=== PATIENT | male | born 1945 | race Caucasian/White ===

== ENCOUNTER → 2017-11-03 | Day surgery (SDC) | payer MEDICARE, OTHER ==
[~2017-11-03] MED LIST: Lactated Ringers 1,000 ML IV SCH; Propofol 200 MG/20 ML SDV IV ONE
[2017-11-03 12:27] VITALS: BP 138/60
--- NOTE | 2017-11-03 13:45 | OR ---
DATE OF OPERATION: 11/03/2017 PREOPERATIVE DIAGNOSIS: CRICOPHARYNGEAL DYSPHAGIA. POSTOPERATIVE DIAGNOSIS: CRICOPHARYNGEAL DYSPHAGIA. SURGEON: Glen Johnston MD PROCEDURE: EGD WITH ESOPHAGEAL CULTURE. ANESTHESIA: MEDIA RELATIONS DIRECTOR due to chronic alcohol abuse. COMPLICATIONS: None. SPECIMEN: Culture of esophagus. FINDINGS: 1. Full-length EGD. 2. Status post gastric bypass. 3. Possible [place] esophagitis. 4. No definable etiology of patient's dysphagia. RECOMMENDATIONS: Medical followup with Efren Perez will give him some nystatin until culture reports back. INDICATIONS: The patient was in for routine physical. He admits to having a feeling of his throat closing when he swallows certain foods in the back of his throat and upper esophageal area. He was sent for EGD. DESCRIPTION OF PROCEDURE: The patient was prepped and draped, placed in the left lateral decubitus position. A lubricated Olympus gastroscope was inserted and easily advanced to this cricopharyngeus region. The scope passed easily with patient swallow, no identifiable lesions were seen from that point to the distal esophagus. The Z-line was clear and sharp at around 38 cm. The patient does have some white plaque-like lesions on the esophagus possibly representing [place]. [place] was used to get a culture of that. The scope was advanced into the stomach and the jejunum. The patient has a Guy-en-Y bypass in the past with the jejunal anastomosis. The anastomosis looks fine without any peptic ulcer disease. There are no polyps, masses, ulcerations, or bleeding sites. In the stomach, a prior stapling can be seen in the lumen. Air was suctioned from the stomach and scope was removed without complication. SINDI/DAX /[id number]
== END ==
LOC: CC.SDS 10:47
PROVIDERS: ATTEND Family Medicine
DX: R13.12 Dysphagia, oropharyngeal phase (principal); F10.20 Alcohol dependence, uncomplicated; M10.9 Gout, unspecified; E78.00 Pure hypercholesterolemia, unspecified; I25.2 Old myocardial infarction; E11.9 Type 2 diabetes mellitus without complications; I50.9 Heart failure, unspecified; M17.0 Bilateral primary osteoarthritis of knee; I25.10 Atherosclerotic heart disease of native coronary artery without angina pectoris; E66.01 Morbid (severe) obesity due to excess calories; Z68.36 Body mass index [BMI] 36.0-36.9, adult; Z98.84 Bariatric surgery status; Z88.8 Allergy status to other drugs, medicaments and biological substances; Z88.5 Allergy status to narcotic agent; Z79.899 Other long term (current) drug therapy; Z79.82 Long term (current) use of aspirin; Z90.49 Acquired absence of other specified parts of digestive tract; Z95.5 Presence of coronary angioplasty implant and graft; Z98.52 Vasectomy status; Z87.891 Personal history of nicotine dependence
CPT/HCPCS: 43235; J2704; J7120; 00740

== ENCOUNTER 2018-06-05 10:13 | Observation (INO) | payer MEDICARE, OTHER ==
[2018-06-05] MEDS ORDERED: LORazepam 2 MG/ML Syringe IVPUSH PRN (11:25)
[2018-06-05] MEDS ORDERED: Acetaminophen 325 MG Tab PO PRN (11:25)
[2018-06-05] MEDS ORDERED: Sodium Chloride 0.9% 10 ML Syringe FLUSH PRN (11:25)
[2018-06-05 12:02] LABS: CHLORIDE,CL 77 mEq/L (98-106)
[2018-06-05 12:22] LABS: SODIUM,NA 118 mEq/L (136-145)
[2018-06-05] MEDS ORDERED: MVI, Adult with Vitamin K 10 ML, Folic Acid 1 MG, Thiamine 100 MG, Magnesium Sulfate 2 ... IV ONE ×5 (12:30)
[2018-06-05] MEDS ORDERED: Enoxaparin 40 MG/0.4 ML Syringe SUBCUT SCH (13:00)
[2018-06-05] MEDS ORDERED: Magnesium Sulfate/D5W 2 GM in Premix Bag 1 BAG IV ONE (16:16)
[2018-06-05] MEDS ORDERED: Sodium Chloride 0.9% 1,000 ML IV SCH (16:30)
[2018-06-05] MEDS: Calcium Carbonate 500 MG Tab.Chew PO SCH (19:32)
[2018-06-05] MEDS ORDERED: Thiamine 100 MG Tab PO SCH (20:00)
[2018-06-06] MEDS ORDERED: Pantoprazole 40 MG Tab.CR PO SCH (07:00)
[2018-06-06] MEDS ORDERED: Levothyroxine 100 MCG Tab PO SCH (07:00)
[2018-06-06 07:35] VITALS: BP 140/51
[2018-06-06 07:39] LABS: CHLORIDE,CL 82 mEq/L (98-106)
[2018-06-06 07:46] LABS: SODIUM,NA 119 mEq/L (136-145)
[2018-06-06] MEDS ORDERED: Cyanocobalamin (Vitamin B12) 1,000 MCG Tab PO SCH (08:00)
[2018-06-06] MEDS ORDERED: PARoxetine 20 MG Tab PO SCH (08:00)
[2018-06-06] MEDS ORDERED: Aspirin 81 MG Tab.EC PO SCH (08:00)
[2018-06-06] MEDS ORDERED: PAROXETINE 30 MG TAB PO SCH (08:00)
[2018-06-06] MEDS ORDERED: Furosemide 40 MG Tab PO SCH (08:00)
[2018-06-06] MEDS ORDERED: amLODIPine 2.5 MG Tab PO SCH (08:00)
[2018-06-06] MEDS ORDERED: Potassium Chloride 40 MEQ in Premix Bag 1 BAG IV ONE (08:10)
[2018-06-06] MEDS ORDERED: PAROXETINE 20 MG TAB PO SCH (08:33)
[2018-06-06] MEDS ORDERED: FUROSEMIDE 40 MG TAB PO SCH (08:39)
[2018-06-06] MEDS ORDERED: LEVOTHYROXINE 100 MCG TAB PO SCH (08:40)
[2018-06-06] MEDS ORDERED: VITAMIN B PO SCH (08:41)
[2018-06-06] MEDS ORDERED: ASPIRIN 81 MG TAB PO SCH (08:42)
[2018-06-06] MEDS ORDERED: MAGNESIUM OXIDE 500 MG PO SCH (08:43)
[2018-06-06] MEDS ORDERED: Potassium Chloride 10 MEQ Tab.ER PO ONE (09:46)
[2018-06-06] MEDS: Calcium Carbonate 500 MG Tab.Chew PO SCH (09:51)
--- NOTE | 2018-06-06 15:16 | PCM.DCSUM1 ---
Discharge Summary - Hospital Course Free Text/Narrative:: Patient presented to clinic to see Efren Perez with concerns of weakness and falls. Patient had been experiencing increased edema in his legs. Did see Efren Perez last week and was started on Metolazone. Admitted that it did help his edema but possibly increased his weakness. He hasn't been able to walk well , falls more often, twice the morning of admit. Does drink on a daily basis compounding the issue. had states was more confused as well. He has established care recently with Dr. Farrell in [place] due to chronic, increasing medical concerns. 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 Was due to see Dr. Farrell today for follow up to discuss MRIs that he has had done of his back and brain. Admitted and labs ordered. Sodium was found to 118 on admit, potassium 3.3. Creatinine 1.0. ProBNP normal. Started on IV Normal saline with repeat labs - Discharge Data Discharge Date: 06/06/18 Discharge Disposition: DC/Tfer to Acute Hospital 02 Condition: Good - Patient Summary/Data Complications: none Consults: Consultations 06/05/18 11:25 PT Evaluation and Treatment [CONS] Routine Hospital Course: Patient is alert and oriented today. He states he feels better than yesterday. Eating well. Blood pressure has been stable. Was given a banana bag yesterday, no DTs yet noted. He had follow up labs done today, sodium with minimal improvement, today at 119, potassium dropped to 2.4. Given potassium 40 meq bump this am. He is up to the bathroom with 1 assist and the walker. Family in today and requesting that he be transferred to [facility] as they are hoping to medically stabilize him and be able to place him somewhere for alcohol treatment. Daughter concerned that if they "miss the window of opportunity and he goes home again, won't get him to agree to get help." They relate that they have spoken with Dr. Farrell in [place] about this and that at the appointment today, she would arrange to have this accomplished. Contact [facility] in [place] and spoke with ZOHAIB Hayden who works with Dr. Farrell as she was not in clinic. She did review his clinic notes and called Dr. Farrell. It was their understanding that he does need treatment, that he could be hospitalized to help with DTs and have case management social worker arrange this. I again spoke with Janice and relayed this information. As he is not yet medically stable, needs to get his electrolytes in balance before any treatment facility would accept him. They would like this done in [place] as that is where his children live and they have a better support system. I contacted Dr. Azul and relayed all this information as well as the patient status. They did accept the patient and will have case management social worker consult. is aware that type of treatment is dependent on the treatment facility as well as payment, coverage, etc. Risks and benefits of transfer discussed with patient and . Benefits of transfer include more specialized care as he does have multiple co-morbidities. Risks of transfer include worsening status, vehicular crash or . Benefits of non-transfer include care close to home. Risks of non-transfer at this point very minimal as we could adjust his electrolyte balance here, however , would not have adequate services for his DTs. Family agrees to transfer this patient. - Patient Instructions Other/Special Instructions: Transfer ALS to Dr. Azul - Discharge Plan *PRESCRIPTION DRUG MONITORING PROGRAM REVIEWED*: Not Applicable *COPY OF PRESCRIPTION DRUG MONITORING REPORT IN PATIENT PUSHPA: Not Applicable Home Medications: Home Meds Levothyroxine [Synthroid] 100 mcg PO DAILY 07/22/14 [History] PARoxetine [Paxil] 50 mg PO DAILY 07/22/14 [History] Cyanocobalamin (Vitamin B12) [Vitamin B12] 1,000 mcg PO DAILY 08/07/15 [History] Magnesium 500 mg PO DAILY 08/07/15 [History] Multivitamin [Daily Multiple Vitamin] 1 tab PO DAILY 08/07/15 [History] Calcium Carbonate [Calcium] 500 mg PO BID 10/29/15 [History] Ibuprofen 600 mg PO Q8H PRN 10/29/15 [History] Aspirin [Halfprin] 81 mg PO DAILY 02/15/16 [History] Acetaminophen 325 mg PO Q6H PRN 10/26/17 [History] Cholecalciferol (Vitamin D3) [Vitamin D3] 3,000 units PO DAILY 10/26/17 [History ] Furosemide [Lasix] 80 mg PO DAILY 10/26/17 [History] amLODIPine [Norvasc] 5 mg PO DAILY 10/26/17 [History] Omeprazole 40 mg PO BIDAC 06/05/18 [History] Thiamine [Vitamin B-1] 100 mg PO DAILY 06/05/18 [History] metOLazone [Zaroxolyn] 5 mg PO DAILY 06/05/18 [History] - General Info Date of Service: 06/06/18 Admission Dx/Problem (Free Text: Hyponatremia Weakness Chronic Alcoholism Functional Status: Reports: Pain Controlled, Tolerating Diet, Ambulating - Review of Systems General: Reports: Weakness, Fatigue. Denies: Fever HEENT: Denies: Ear Pain, Sinus Congestion, Sore Throat Pulmonary: Reports: Shortness of Breath, Wheezing. Denies: Cough Cardiovascular: Reports: Edema. Denies: Chest Pain, Lightheadedness Gastrointestinal: Denies: Abdominal Pain, Nausea, Vomiting Genitourinary: Reports: No Symptoms Musculoskeletal: Reports: Back Pain Skin: Reports: No Symptoms Neurological: Reports: Pre-Existing Deficit - Patient Data Vitals - Most Recent: Last Vital Signs Temp 97.9 F 06/06/18 07:34 Pulse 67 06/06/18 07:34 Resp 18 06/06/18 07:34 BP 140/51 L 06/06/18 07:34 Pulse Ox 95 06/06/18 07:34 Weight - Most Recent: 236 lb 6.4 oz Lab Results - Last 24 hrs: Laboratory Results - last 24 hr 06/05/18 06/06/18 Range/Units 15:55 07:26 Sodium 119 L* (136-145) mEq/L Potassium 2.4 L* D (3.5-5.0) mEq/L Chloride 82 L (98-106) mEq/L Carbon Dioxide 35 H (21-32) mmol/L BUN 11 (7-18) mg/dL Creatinine 0.9 (0.7-1.3) mg/dL Est Cr Clr Drug Dosing 68.61 mL/min Estimated GFR (MDRD) > 60 (>=60) mL/min Glucose 111 H (75-99) mg/dL Calcium 7.6 L (8.4-10.1) mg/dL Magnesium 2.0 (1.8-2.4) mg/dL Urine Color Yellow (YELLOW) Urine Appearance Clear (CLEAR) Urine pH 6.5 (4.5-8.0) Ur Specific [place] 1.015 (1.003-1.020) Urine Protein 100 H (NEGATIVE) mg/dL Urine Glucose (UA) Negative (NEGATIVE) mg/dL Urine Ketones 15 H (NEGATIVE) mg/dL Urine Occult Blood Negative (NEGATIVE) Urine Nitrite Negative (NEGATIVE) Urine Bilirubin Negative (NEGATIVE) Urine Urobilinogen 0.2 (0.2-1.0) EU/dL Ur Leukocyte Esterase Negative (NEGATIVE) Urine RBC 0-5 (0-5) /HPF Urine WBC 0-5 (0-5) /HPF Ur Squamous Epith Cells Occasional H (NOT SEEN) /HPF Urine Bacteria Few H (NOT SEEN) /HPF Med Orders - Current: Current Medications Discontinued Medications Acetaminophen (Tylenol) 650 mg PO Q4H PRN PRN Reason: Pain (Mild 1-3)/fever Amlodipine Besylate (Norvasc) 5 mg PO DAILY [facility] Aspirin (Halfprin) 81 mg PO DAILY [facility] Calcium Carbonate/Glycine (Tums) 500 mg PO BID [facility] Last Admin: 06/06/18 09:51 Dose: 500 mg Cyanocobalamin (Vitamin B12) 1,000 mcg PO DAILY [facility] Enoxaparin Sodium (Lovenox) 40 mg SUBCUT DAILY@1200 [facility] Last Admin: 06/05/18 12:59 Dose: 40 mg Furosemide (Lasix) 80 mg PO DAILY [facility] Multivitamins/Minerals 10 ml/Folic Acid 1 mg/ Thiamine HCl 100 mg/ Magnesium Sulfate 2 gm / Sodium Chloride 1,015.2 mls @ 75 mls/hr IV ONETIME ONE Stop: 06/06/18 02:02 Last Admin: 06/05/18 12:57 Dose: 75 mls/hr Magnesium Sulfate/Dextrose 2 (gm/ Premix) 200 mls @ 100 mls/hr IV ONETIME ONE Stop: 06/05/18 18:15 Last Admin: 06/05/18 17:15 Dose: 100 mls/hr Sodium Chloride (Normal Saline) 1,000 mls @ 100 mls/hr IV ASDIRECTED [facility] Last Admin: 06/06/18 03:57 Dose: 100 mls/hr Potassium Chloride 40 meq/ (Premix) 100 mls @ 25 mls/hr IV ONETIME ONE Stop: 06/06/18 12:09 Last Admin: 06/06/18 08:44 Dose: 25 mls/hr Levothyroxine Sodium (Synthroid) 100 mcg PO ACBREAKFAST [facility] Lorazepam (Ativan) 1 mg IVPUSH Q6H PRN PRN Reason: Nausea/Vomiting Magnesium Oxide (Magnesium Oxide) 500 mg PO DAILY [facility] Paroxetine 20 Mg Tab 1 each PO DAILY [facility] Paroxetine 30 Mg Tab 1 each PO DAILY [facility] Last Admin: 06/06/18 09:45 Dose: 1 each Amlodipine 5 Mg Tab 1 each PO DAILY [facility] Last Admin: 06/06/18 09:42 Dose: 1 each Furosemide 40 Mg Tab 2 each PO DAILY [facility] Last Admin: 06/06/18 09:44 Dose: 2 each Levothyroxine 100 (Mcg Tab) 1 each PO ACBREAKFAST [facility] Last Admin: 06/06/18 09:41 Dose: 1 each Vitamin B 12 Tab 1 each PO DAILY [facility] Aspirin 81 Mg Tab 1 each PO DAILY [facility] Last Admin: 06/06/18 09:43 Dose: 1 each Magnesium Oxide 500 (Mg Tab) 1 each PO DAILY [facility] Pantoprazole Sodium (Protonix) 40 mg PO ACBREAKFAST [facility] Last Admin: 06/06/18 09:51 Dose: 40 mg Paroxetine HCl (Paxil) 50 mg PO DAILY [facility] Potassium Chloride (Klor-Con 10) 20 meq PO ONETIME ONE Stop: 06/06/18 09:47 Last Admin: 06/06/18 10:10 Dose: 20 meq Sodium Chloride (Saline Flush) 10 ml FLUSH ASDIRECTED PRN PRN Reason: Keep Vein Open Thiamine HCl (Vitamin B-1) 100 mg PO BEDTIME [facility] - Exam General: Reports: Alert, Oriented HEENT: Reports: Mucous Membr. Moist/[place] Neck: Reports: Supple Lungs: Reports: Decreased Breath Sounds Cardiovascular: Reports: Regular Rate, Regular Rhythm GI/Abdominal Exam: Normal Bowel Sounds, Soft, Non-Tender Neurological: Reports: No New Focal Deficit
== END 2018-06-06 11:45 ==
LOC: UNDOADMOB 10:22 → CC.MS 10:22
PROVIDERS: ADMIT Physician Assistant Medical; ATTEND Family Medicine
DX: R53.1 Weakness (principal); F10.20 Alcohol dependence, uncomplicated; R29.6 Repeated falls; R60.0 Localized edema; E87.1 Hypo-osmolality and hyponatremia; I11.0 Hypertensive heart disease with heart failure; I50.9 Heart failure, unspecified; E11.9 Type 2 diabetes mellitus without complications; E03.9 Hypothyroidism, unspecified; G47.30 Sleep apnea, unspecified; F32.9 Major depressive disorder, single episode, unspecified; Z87.891 Personal history of nicotine dependence; Z79.82 Long term (current) use of aspirin; Z79.899 Other long term (current) drug therapy; Z88.5 Allergy status to narcotic agent
CPT/HCPCS: 36415; 71046; 80048; 80053; 81001; 83735; 83880; 85025; 96372; 96374; 96375; 97110-GP; 97162-GP; A9270-GY; G0378; J1650; J3411; J3475; J3480; J3490; J7030

== ENCOUNTER 2019-09-21 10:30 | Inpatient (IN) | payer MEDICARE, OTHER ==
[2019-09-21 12:40] LABS: CHLORIDE,CL 100 mEq/L (98-106); SODIUM,NA 138 mEq/L (136-145)
[2019-09-21] MEDS ORDERED: Temazepam 15 MG Cap PO PRN (14:28)
[2019-09-21] MEDS ORDERED: Acetaminophen 325 MG Tab PO PRN (14:28)
[2019-09-21] MEDS ORDERED: Ondansetron 4 MG/2 ML SDV IV PRN (14:28)
[2019-09-21] MEDS ORDERED: Docusate Sodium 100 MG Cap PO PRN (14:28)
[2019-09-21] MEDS ORDERED: Ibuprofen 200 MG Tab PO PRN (14:28)
[2019-09-21] MEDS ORDERED: cefTRIAXone 1 GM Vial IVPUSH SCH (15:30)
[2019-09-21] MEDS ORDERED: methylPREDNISolone Sodium Succinate 125 MG/2 ML SDV IVPUSH SCH (16:00)
[2019-09-21] MEDS ORDERED: Azithromycin 500 MG in Sodium Chloride 0.9% 250 ML IV SCH (16:00)
[2019-09-21] MEDS: Albuterol/Ipratropium 3.0-0.5 MG/3 ML Neb Soln NEB SCH ×2 (16:32→19:38)
[2019-09-21] MEDS ORDERED: Enoxaparin 40 MG/0.4 ML Syringe SUBCUT SCH ×2 (18:00→20:00)
[2019-09-21 19:30] VITALS: BP 136/61; PULSE 117
[2019-09-21] MEDS: Albuterol/Ipratropium 3.0-0.5 MG/3 ML Neb Soln NEB PRN ×2 (19:52→19:53)
[2019-09-21] MEDS ORDERED: Furosemide 40 MG/4 ML VIAL IVPUSH ONE (19:53)
[2019-09-21] MEDS ORDERED: Calcium Carbonate 500 MG Tab.Chew PO SCH (20:00)
[2019-09-21 20:09] LABS: O2 DELIVERY DEVICE NON REBR MASK
[2019-09-21 20:11] LABS: BICARBONATE,ARTERIAL 21.4 mm/L (22.0-26.0); O2 SATURATION ARTERIAL 85 % (95-98); PCO2 ARTERIAL 37 mm/Hg0 (35-45); PO2 ARTERIAL 52 mm/Hg (80-100)
--- NOTE | 2019-09-21 20:31 | PCM.PN ---
- General Info Date of Service: 09/21/19 - Review of Systems General: Reports: Other (Respiratory Distress) Pulmonary: Reports: Shortness of Breath Cardiovascular: Reports: No Symptoms Gastrointestinal: Reports: No Symptoms Musculoskeletal: Reports: No Symptoms Skin: Reports: No Symptoms - Patient Data Vitals - Most Recent: Last Vital Signs Temp 98.2 F 09/21/19 19:29 Pulse 117 H 09/21/19 19:29 Resp 24 H 09/21/19 19:29 BP 136/61 09/21/19 19:29 Pulse Ox 85 L 09/21/19 19:29 Weight - Most Recent: 213 lb 12.8 oz I&O - Last 24 Hours: Intake & Output 09/21/19 09/21/19 09/21/19 06:59 14:59 22:59 Intake Total 400 Balance 400 Lab Results Last 24 Hours: Laboratory Results - last 24 hr 09/21/19 09/21/19 09/21/19 Range/Units 10:00 10:00 10:00 WBC 10.3 H (5.0-10.0) 10^3/uL RBC 4.75 (4.50-6.00) 10^6/uL Hgb 13.0 L (14.0-18.0) g/dL Hct 40.9 (40.0-54.0) % MCV 86.1 (82.0-94.0) fL MCH 27.4 (27.0-32.0) pg MCHC 31.8 L (33.0-38.0) g/dL RDW Coeff of Pk 18.7 H (11.0-15.0) % Plt Count 215 (150-400) 10^3/uL Add Manual Diff Yes Neutrophils % (Manual) 68 (35-85) % Band Neutrophils % 25 H (0-5) % Lymphocytes % (Manual) 2 L (21-55) % Monocytes % (Manual) 5 (2-12) % ABG pH (7.35-7.45) ABG pCO2 (35-45) mm/Hg0 ABG pO2 (80-100) mm/Hg ABG HCO3 (22.0-26.0) mm/L ABG O2 Saturation (95-98) % ABG Base Excess (-2.0-3.0) O2 Delivery Device Sodium 138 (136-145) mEq/L Potassium 4.0 (3.5-5.0) mEq/L Chloride 100 (98-106) mEq/L Carbon Dioxide 27 (21-32) mmol/L BUN 19 H (7-18) mg/dL Creatinine 1.1 (0.7-1.3) mg/dL Est Cr Clr Drug Dosing TNP Estimated GFR (MDRD) > 60 (>=60) mL/min Glucose 123 H (75-99) mg/dL Lactic Acid 1.7 (0.4-2.0) mmol/L Calcium 8.8 (8.4-10.1) mg/dL Total Bilirubin 0.6 (0.0-1.0) mg/dL AST 29 (15-37) U/L ALT 36 (12-78) U/L Alkaline Phosphatase 167 H (46-116) U/L C-Reactive Protein 20.0 H (0.2-0.8) mg/dL NT-Pro-B Natriuret Pep 5982 H (0-1000) pg/mL Total Protein 6.8 (6.4-8.2) g/dL Albumin 3.0 L (3.4-5.0) g/dL 09/21/19 Range/Units 20:05 WBC (5.0-10.0) 10^3/uL RBC (4.50-6.00) 10^6/uL Hgb (14.0-18.0) g/dL Hct (40.0-54.0) % MCV (82.0-94.0) fL MCH (27.0-32.0) pg MCHC (33.0-38.0) g/dL RDW Coeff of Pk (11.0-15.0) % Plt Count (150-400) 10^3/uL Add Manual Diff Neutrophils % (Manual) (35-85) % Band Neutrophils % (0-5) % Lymphocytes % (Manual) (21-55) % Monocytes % (Manual) (2-12) % ABG pH 7.37 (7.35-7.45) ABG pCO2 37 (35-45) mm/Hg0 ABG pO2 52 L (80-100) mm/Hg ABG HCO3 21.4 L (22.0-26.0) mm/L ABG O2 Saturation 85 L (95-98) % ABG Base Excess -4.0 L (-2.0-3.0) O2 Delivery Device Non rebr mask Sodium (136-145) mEq/L Potassium (3.5-5.0) mEq/L Chloride (98-106) mEq/L Carbon Dioxide (21-32) mmol/L BUN (7-18) mg/dL Creatinine (0.7-1.3) mg/dL Est Cr Clr Drug Dosing Estimated GFR (MDRD) (>=60) mL/min Glucose (75-99) mg/dL Lactic Acid (0.4-2.0) mmol/L Calcium (8.4-10.1) mg/dL Total Bilirubin (0.0-1.0) mg/dL AST (15-37) U/L ALT (12-78) U/L Alkaline Phosphatase (46-116) U/L C-Reactive Protein (0.2-0.8) mg/dL NT-Pro-B Natriuret Pep (0-1000) pg/mL Total Protein (6.4-8.2) g/dL Albumin (3.4-5.0) g/dL Matthew Results Last 24 Hours: Microbiology 09/21/19 10:00 Influenza Type A Antigen Screen - Final Nasopharyngeal Swab NEGATIVE INFLUENZA A VIRUS AG REFERENCE RANGE: NEGATIVE Influenza Type B Antigen Screen - Final NEGATIVE INFLUENZA B VIRUS AG REFERENCE RANGE: NEGATIVE Med Orders - Current: Current Medications Acetaminophen (Tylenol) 650 mg PO Q4H PRN PRN Reason: Pain (Mild 1-3)/fever Albuterol/Ipratropium (Duoneb 3.0-0.5 Mg/3 Ml) 3 ml NEB Q4H PRN PRN Reason: Shortness Of Breath/wheezing Last Admin: 09/21/19 19:53 Dose: 3 ml Albuterol/Ipratropium (Duoneb 3.0-0.5 Mg/3 Ml) 3 ml NEB QIDRT [facility] Last Admin: 09/21/19 19:38 Dose: 3 ml Amlodipine Besylate (Norvasc) 5 mg PO DAILY [facility] Aspirin (Halfprin) 81 mg PO DAILY [facility] Calcium Carbonate/Glycine (Tums) 1,000 mg PO BID [facility] Last Admin: 09/21/19 19:39 Dose: 1,000 mg Ceftriaxone Sodium (Rocephin) 1 gm IVPUSH Q24H [facility] Last Admin: 09/21/19 16:32 Dose: 1 gm Cholecalciferol (Vitamin D3) 25 mcg PO DAILY [facility] Cyanocobalamin (Vitamin B12) 1,000 mcg PO DAILY [facility] Docusate Sodium (Colace) 100 mg PO BID PRN PRN Reason: Constipation Enoxaparin Sodium (Lovenox) 40 mg SUBCUT Q24H [facility] Last Admin: 09/21/19 19:38 Dose: 40 mg Azithromycin 500 mg/ Sodium (Chloride) 250 mls @ 250 mls/hr IV Q24H [facility] Last Admin: 09/21/19 16:31 Dose: 250 mls/hr Ibuprofen (Motrin) 600 mg PO Q6H PRN PRN Reason: Pain (mild 1-3) Last Admin: 09/21/19 16:36 Dose: 600 mg Levothyroxine Sodium (Levothyroxine) 125 mcg PO ACBRK [facility] Magnesium Oxide (Magnesium Oxide) 500 mg PO DAILY [facility] Methylprednisolone Sodium Succinate (Solu-Medrol) 62.5 mg IVPUSH Q12H [facility] Last Admin: 09/21/19 16:31 Dose: 62.5 mg Multivitamins/Minerals/Vitamin C (Tab-A-Zahra) 1 tab PO DAILY [facility] Ondansetron HCl (Zofran) 4 mg IV Q6H PRN PRN Reason: Nausea/Vomiting Pantoprazole Sodium (Protonix) 40 mg PO DAILY@0700 [facility] Temazepam (Restoril) 15 mg PO BEDTIME PRN PRN Reason: Sleep Discontinued Medications Enoxaparin Sodium (Lovenox) 40 mg SUBCUT Q24H [facility] Last Admin: 09/21/19 19:11 Dose: Not Given Furosemide (Lasix) 40 mg IVPUSH ONETIME ONE Stop: 09/21/19 19:54 Last Admin: 09/21/19 20:08 Dose: 40 mg - Exam Quality Assessment: Supplemental Oxygen (NRB 10L upon assessment) General: Severe Distress (Respiratory Distress: Rate 34, accessory muscle use. ) , Other (Drowsy but arrousable. ) Neck: Trachea Midline, No JVD Lungs: Decreased Breath Sounds (severe throughout), Rhonchi Cardiovascular: Tachycardia Extremities: Normal Inspection, Normal Capillary Refill, Pedal Edema (+1 BLE) Peripheral Pulses: 2+: Radial (L), Radial (R), Popliteal (R), Posterior Tibial ( L), Posterior Tibial (R), Dorsalis Pedis (L), Dorsalis Pedis (R) Skin: Warm, Dry, Intact Neurological: Other (Confused, "190" year. Does know name and [facility].) - Problem List Review Problem List Initiated/Reviewed/Updated: Yes - My Orders Last 24 Hours: My Active Orders 09/21/19 Chest 2V [CR] Routine 09/21/19 10:00 CULTURE BLOOD [BC] Routine 09/21/19 10:15 CULTURE BLOOD [BC] Routine 09/21/19 14:28 Patient Status [ADT] Routine Height and Weight [RC] .PRN Oxygen Therapy [RC] 2355 Up With Assistance [RC] .PRN Up to Chair [RC] .PRN Vital Signs [RC] 0000,0400,0800,1200,1600,2000 Acetaminophen [Tylenol] 650 mg PO Q4H PRN Albuterol/Ipratropium [DuoNeb 3.0-0.5 MG/3 ML] 3 ml NEB Q4H PRN Docusate Sodium [Colace] 100 mg PO BID PRN Ibuprofen [Motrin] 600 mg PO Q6H PRN Ondansetron [Zofran] 4 mg IV Q6H PRN Temazepam [Restoril] 15 mg PO BEDTIME PRN Resuscitation Status Routine 09/21/19 15:03 Intake and Output [RC] 0600,1800 Notify Provider Vital Signs [RC] .PRN Pulse Oximetry [RC] .PRN 09/21/19 15:04 Antiembolic Hose [OM.PC] Per Unit Routine 09/21/19 15:05 RT Aerosol Therapy [RC] 0000,0400,0800,1200,1600,199909/21/19 15:30 cefTRIAXone [Rocephin] 1 gm IVPUSH Q24H 09/21/19 16:00 Albuterol/Ipratropium [DuoNeb 3.0-0.5 MG/3 ML] 3 ml NEB QIDRT Azithromycin [Zithromax] 500 mg Sodium Chloride 0.9% [Normal Saline] 250 ml IV Q24H methylPREDNISolone Sod Succ [Solu-MEDROL] 62.5 mg IVPUSH Q12H 09/21/19 20:00 Calcium Carbonate [Tums] 1,000 mg PO BID Enoxaparin [Lovenox] 40 mg SUBCUT Q24H 09/21/19 Dinner 2 Gram Sodium Diet [DIET] 09/22/19 05:00 BASIC METABOLIC PANEL,BMP [CHEM] DAILY C-REACTIVE PROTEIN [CHEM] DAILY CBC WITH AUTO DIFF [HEME] DAILY 09/22/19 07:00 Levothyroxine 125 mcg PO ACBRK Pantoprazole [ProTONIX] 40 mg PO DAILY@0700 09/22/19 08:00 Aspirin [Halfprin] 81 mg PO DAILY Cholecalciferol (Vitamin D3) [Vitamin D3] 25 mcg PO DAILY Cyanocobalamin (Vitamin B12) [Vitamin B12] 1,000 mcg PO DAILY Magnesium Oxide 500 mg PO DAILY Multivitamins [Tab-A-Zahra] 1 tab PO DAILY amLODIPine [Norvasc] 5 mg PO DAILY 09/23/19 05:00 BASIC METABOLIC PANEL,BMP [CHEM] DAILY C-REACTIVE PROTEIN [CHEM] DAILY CBC WITH AUTO DIFF [HEME] DAILY 09/24/19 05:00 BASIC METABOLIC PANEL,BMP [CHEM] DAILY C-REACTIVE PROTEIN [CHEM] DAILY CBC WITH AUTO DIFF [HEME] DAILY 09/25/19 05:00 BASIC METABOLIC PANEL,BMP [CHEM] DAILY C-REACTIVE PROTEIN [CHEM] DAILY CBC WITH AUTO DIFF [HEME] DAILY - Plan Plan:: I admitted this patient from clinic today. He was stable at time of admit with breathing treatments. I received a phone call from PALAK Flores at 7:48pm that patient was in respiratory distress. Patient had just had a duoneb, but still is not moving good air. I assessed patient. Patient is in respiratory distress rate of 34, accessory muscle use, not able to converse in complete sentences. Oxygen saturation is 82% on CPAP. took oxygen off and put on CPAP. RN put on simple mask at 10L, saturation went up to 90%. The patient continues to rate of 34, confused, and using accessory muscles. He remains in respiratory distress and not able to talk. I ordered two more duonebs, lasix due to elevated bnp. After this the patient is more verbal and converses. His respiratory distress have improved, his respiratory rate is now 28, his oxygen saturation is 95% on 15 NRB. Did discuss with and patient about possible intubation. They are wanting this if needed. Full Code. We do not have BIPAP at our facility. He is still also confused on year, says its "190". Earlier he was alert and oriented and not in this distress. I called and spoke to Dr. Jack at [facility], she has accepted the transfer. Flight was paged and in route. At this time we will hold on intubation due to patient oxygen and rate improvement. Transfer to [facility]. Risk vs benefits explained to patient and . They accept. Risks of transfer are helicopter crash, , intubation, respiratory distress, respiratory arrest. The risks of staying in [place] is no BIPAP, , worsening of condition. The benefits of transfer are BIPAP, ICU, produce buyer, higher level of care, vent if needed. The benefits of staying in [place] is close to home.
[2019-09-22] MEDS ORDERED: Levothyroxine 125 MCG Tab PO SCH (07:00)
[2019-09-22] MEDS ORDERED: Pantoprazole 40 MG Tab.CR PO SCH (07:00)
[2019-09-22] MEDS ORDERED: Cholecalciferol (Vitamin D3) 25 MCG Tab PO SCH (08:00)
[2019-09-22] MEDS ORDERED: amLODIPine 2.5 MG Tab PO SCH (08:00)
[2019-09-22] MEDS ORDERED: Multivitamin Tab PO SCH (08:00)
[2019-09-22] MEDS ORDERED: Cyanocobalamin (Vitamin B12) 1,000 MCG Tab PO SCH (08:00)
[2019-09-22] MEDS ORDERED: Aspirin 81 MG Tab.EC PO SCH (08:00)
== END 2019-09-21 22:30 | DRG 195 ==
LOC: CC.MS 10:30 → UNDOADMIN 10:30 → CC.MS 14:28 → UNDODISIN 22:30
PROVIDERS: ADMIT Nurse Practitioner; ATTEND Family Medicine
DX: J18.9 Pneumonia, unspecified organism (principal); Z88.5 Allergy status to narcotic agent; Z79.899 Other long term (current) drug therapy; Z99.81 Dependence on supplemental oxygen
CPT/HCPCS: 36415; 36600; 51702; 71046; 80053; 82803; 83605; 83880; 85025; 86140; 87040; 87804; 94640; A9270-GY; J0456; J0696; J1650; J1940; J2930; J7050; J7620-GY